=== PATIENT | female | born 1950 | race Caucasian/White ===

== ENCOUNTER → 2017-04-26 | Outpatient (CLI) | payer SELFPAY ==
--- NOTE | 2017-04-27 10:41 | RAD ---
DATE: 04/26/2017. EXAM: MAMMO LUAN SCREENING BILATERAL. HISTORY: Routine mammographic screening. COMPARISON: 03/18/2015. This study was interpreted with the benefit of Computerized Aided Detection (CAD). FINDINGS: The breast parenchyma shows scattered fibroglandular densities. Breast parenchyma level B.. There are no suspicious masses, microcalcifications or architectural distortion. A few small nodules are stable. Scattered and vascular calcifications are benign. BI-RADS CATEGORY: 2 BENIGN FINDING(S). RECOMMENDED FOLLOW-UP: 12M 12 MONTH FOLLOW-UP. PQRS compliance statement: Patient information was entered into a reminder system with a target due date 04/26/2018 for the next mammogram. Mammography is a sensitive method for finding small breast cancers, but it does not detect them all and is not a substitute for careful clinical examination. A negative mammogram does not negate a clinically suspicious finding and should not result in delay in biopsying a clinically suspicious abnormality. "Our facility is accredited by the [employer] Mammography Program."
== END | disposition home or self-care (01) ==
LOC: MAMMO 14:47
PROVIDERS: ATTEND Physician Assistant Medical
DX: Z12.31 Encounter for screening mammogram for malignant neoplasm of breast (principal)
CPT/HCPCS: 77063; 77067

== ENCOUNTER → 2019-02-15 | Outpatient (CLI) | payer MEDICARE ==
--- NOTE | 2019-02-15 16:38 | RAD ---
EXAM: Left fourth finger, 3 views. HISTORY: Knot on finger. COMPARISON: None. FINDINGS: 3 views of the left fourth finger are obtained. There is no fracture, dislocation or subluxation. No foreign body is seen. There is no lytic or sclerotic osseous lesion. IMPRESSION: No acute osseous finding. Electronically signed by: Brandi Miller MD (02/15/2019 4:35 PM) [place] [id number]
== END | disposition home or self-care (01) ==
LOC: DXRAD 15:45
PROVIDERS: ATTEND Physician Assistant Medical
DX: R22.32 Localized swelling, mass and lump, left upper limb (principal)
CPT/HCPCS: 73140